=== PATIENT | female | born 2000 | race Asian ===

== ENCOUNTER 2024-06-12 02:04 | Emergency (ER) | payer OTHER ==
[2024-06-12 02:10] VITALS: BP 109/70; PULSE 99; RESP 20; TEMP 98.1; BMI 22.9
[2024-06-12 03:35] LABS: EPI CELLS >36 /uL (0-25.1); HYALINE CASTS 1 /uL (0-3.1); PH,URINE 7.5 (5.0-8.0); URINE APPEARANCE CLEAR; URINE BACTERIA 442 /uL (0-1359); URINE BILIRUBIN NEGATIVE (NEGATIVE); URINE COLOR DK YELLOW; URINE GLUCOSE (UA) NEGATIVE (NEGATIVE); URINE KETONE TRACE (NEGATIVE); URINE LEUK ESTERASE TRACE (NEGATIVE); URINE NITRITE NEGATIVE (NEGATIVE); URINE PROTEIN TRACE (NEGATIVE); URINE WBC 21 /uL (0-25.8)
[2024-06-12 09:52] LABS: URINE RBC 57.8 /uL (0-23.9)
== END 2024-06-12 04:44 | disposition home or self-care (01) ==
LOC: JER 02:04
DX: O99.891 Other specified diseases and conditions complicating pregnancy (principal); R50.9 Fever, unspecified; R05.9 Cough, unspecified; R53.81 Other malaise; M79.10 Myalgia, unspecified site; O26.891 Other specified pregnancy related conditions, first trimester; R10.30 Lower abdominal pain, unspecified; O98.511 Other viral diseases complicating pregnancy, first trimester; B33.8 Other specified viral diseases; Z3A.12 12 weeks gestation of pregnancy; Z20.822 Contact with and (suspected) exposure to COVID-19
CPT/HCPCS: 0241U-QW; 81003; 87086; 87651; 99284-25